=== PATIENT | male | born 1965 | race Caucasian/White ===

== ENCOUNTER 2022-02-23 17:03 | Emergency (ER) | payer OTHER ==
[~2022-02-23] VITALS: Ht 175.3 cm; Wt 91.0 kg
[2022-02-23] MEDS ORDERED: TETANUS, DIPHTHERIA, PERTUSSIS VAC/PF 0.5ML (>10YR OLD) IM ONE (21:00)
[2022-02-23 22:00] VITALS: BP 139/93
== END 2022-02-23 22:05 | disposition home or self-care (01) ==
LOC: ER 17:03
DX: S01.01XA Laceration without foreign body of scalp, initial encounter (principal); M54.2 Cervicalgia; Z88.0 Allergy status to penicillin; W22.8XXA Striking against or struck by other objects, initial encounter; Y93.89 Activity, other specified; Y92.89 Other specified places as the place of occurrence of the external cause; Y99.8 Other external cause status
CPT/HCPCS: 90471; 90715; 99284

== ENCOUNTER 2022-03-05 09:11 | Emergency (ER) | payer OTHER ==
[~2022-03-05] VITALS: Ht 175.3 cm; Wt 91.0 kg
[2022-03-05 10:44] VITALS: BP 127/62
== END 2022-03-05 10:48 | disposition home or self-care (01) ==
LOC: ER 09:22
DX: Z48.02 Encounter for removal of sutures (principal); Z48.00 Encounter for change or removal of nonsurgical wound dressing
CPT/HCPCS: 99281